=== PATIENT | male | born 1975 | race Caucasian/White ===

== ENCOUNTER 2023-10-11 07:50 | Day surgery (SDC) | payer BC | END 2023-10-11 13:45 | disposition home or self-care (01) | LOC: SDC 07:50 | PROVIDERS: ATTEND Surgery | PROC: 0FT44ZZ Resection of Gallbladder, Percutaneous Endoscopic Approach (ICD-10-PCS; principal; 2023-10-11) | DX: K80.10 Calculus of gallbladder with chronic cholecystitis without obstruction (principal); I10 Essential (primary) hypertension; Z79.899 Other long term (current) drug therapy; Z98.890 Other specified postprocedural states | CPT/HCPCS: 88304; C1713; C1889; J0171; J0665; J1100; J1885; J2405; J2704; J3490 ==